=== PATIENT | male | born 1975 | race African-American/Black ===

== ENCOUNTER 2018-05-27 22:26 | Emergency (ER) | payer SELFPAY ==
[~2018-05-27] VITALS: Ht 185.4 cm; Wt 77.1 kg
[2018-05-27 22:26] VITALS: BP 145/96
--- NOTE | 2018-05-27 22:27 | NUR ---
ED Nurse Note: Patient BIBA with complaints of recent seizure, with no peritnent health history,
[2018-05-27] MEDS ORDERED: levETIRAcetam 1,000mg/NS100ml 100 ML IVPB ONE (22:45)
[2018-05-27 23:22] VITALS: BP 140/90
--- NOTE | 2018-05-27 23:27 | NUR ---
ED Nurse Note: Patient tolerated medication well. Patient is resting comfortably with brother at bedside.
--- NOTE | 2018-05-27 23:55 | NUR ---
ED Nurse Note: Patient tolerated sutures well. No bleeding complications occured.
--- NOTE | 2018-05-27 23:57 | Emergency Room Report ---
History of Present Illness General Chief Complaint: Seizure Source: Patient, Friend, EMS Present Illness HPI This is a 43-year-old male who has no past medical history. He presents with chief complaint of seizure. Onset today. He is currently visiting the [place] from [place]. He just came home from the airport after a 10 hour trip. 5 minutes into the house he had a tonic-clonic seizure activity witnessed by his friend. No head trauma. He was put down to the ground. There was bleeding from his mouth. Right now is back to baseline. No incontinence of urine. Patient had one previous seizure and seen in [place]. He said he had workup including MRI that was normal. He was not started on any medication. Denies any other complaint. Denies any drug use. Allergies: Coded Allergies: No Known Allergies (Unverified , 05/27/18) Patient History Past Medical History: see triage record, old chart reviewed Past Surgical History: none Pertinent Family History: none Social History: Denies: smoking Immunizations: other Reviewed Nursing Documentation: PMH: Agreed; PSxH: Agreed Nursing Documentation-PMH Past Medical History: No Stated History Review of Systems Eye: Denies: eye pain, blurred vision ENT: Denies: ear pain, nose congestion, throat swelling Respiratory: Denies: cough, shortness of breath Cardiovascular: Denies: chest pain, palpitations Gastrointestinal: Denies: abdominal pain, diarrhea, nausea, vomiting Musculoskeletal: Denies: back pain, joint pain Skin: Denies: rash Neurological: Denies: headache, numbness Endocrine: Denies: increased thirst, increased urine Hematologic/Lymphatic: Denies: easy bruising All Other Systems: negative except mentioned in HPI Physical Exam Vital Signs Date Time Temp Pulse Resp B/P (MAP) Pulse Ox O2 Delivery O2 Flow Rate FiO2 05/27/18 22:19 97.0 112 18 145/96 98 Room Air vitals unremarkable Sp02 EP Interpretation: reviewed, normal General Appearance: well appearing, no apparent distress, alert Head: normocephalic, atraumatic Eyes: bilateral eye PERRL, bilateral eye EOMI ENT: hearing grossly normal, normal pharynx, other - Tongue: There is a 4 cm laceration to the lateral aspect of this tongue. Neck: full range of motion, supple, no meningismus Respiratory: chest non-tender, lungs clear, normal breath sounds Cardiovascular #1: regular rate, rhythm, no murmur Gastrointestinal: normal bowel sounds, non tender, no mass, no organomegaly, no bruit, non-distended Musculoskeletal: back normal, gait/station normal, normal range of motion Psychiatric: mood/affect normal Skin: warm/dry Procedures Laceration/Wound Repair Laceration/Wound Repair : Consent: Verbal Wound Location: other - Mouth Wound's Depth, Shape: into muscle, linear Wound Length (cm): 4 Wound Explored: clean Anesthesia: 1% Lidocaine Volume Anesthetic (ccs): 2 Wound Repaired With: sutures Suture Size/Type: 4:0, other - chromic Number of Sutures: 4 Patient Tolerated: Well Complications: None Medical Decision Making Diagnostic Impression: Primary Impression: Seizure disorder Additional Impression: Laceration of tongue without complication Qualified Codes: S01.512A - Laceration without foreign body of oral cavity, initial encounter ER Course Patient presents with a seizure. This is his second episode, as I started on Keppra. Seizure activities probably secondary to the long trip and lack of sleep. He is otherwise stable. He is not driving here. We'll have him follow- up in [place] with his doctor. He may need EEG and further workup. Last Vital Signs Date Time Temp Pulse Resp B/P (MAP) Pulse Ox O2 Delivery O2 Flow Rate FiO2 05/27/18 23:22 97.0 80 16 140/90 100 Room Air Status: improved Disposition: HOME, SELF-CARE Condition: Stable Scripts Levetiracetam (KEPPRA) 500 Mg Tablet 500 MG ORAL EVERY 12 HOURS, #60 TAB 0 Refills Prov: Javier Cavanaugh MD 05/28/18 Patient Instructions: Seizure, Adult Additional Instructions: Follow-up with your Dr. within get back to [place]. You may need a referral to see a neurologist. Rinse your mouth with warm water and salt solution after eating and drinking. Return if symptom worsen. Javier Cavanaugh MD May 27, 2018 23:57
[2018-05-28] MEDS ORDERED: KEPPRA500 M4 ORAL
--- NOTE | 2018-05-28 00:07 | NUR ---
ED Nurse Note: Patient cleared for discharge, patient is A&Ox4, ambulatory with steady gait no s/s of acute distress. IV removed, Id band removed, patient verbalized understanding of discharge instructions. patient departed with all personal belongings accompanied by his brother.
[2018-05-28 00:25] VITALS: BP 140/90
--- NOTE | 2018-05-28 00:25 | NUR ---
ED Nurse Note: At time of discharge patient seemed very shaky abnd unable to walk with steady gait. ERMD informed and patient medicated upon departure. Patient wheelchaired to private vehicle.
[2018-05-28] MEDS ORDERED: LORazepam Inj 2mg/ml 1ml IM ONE (00:30)
== END 2018-05-28 00:25 | disposition home or self-care (01) ==
LOC: EDBD 22:26 → EMR 22:36
DX: G40.409 Other generalized epilepsy and epileptic syndromes, not intractable, without status epilepticus (principal); S01.512A Laceration without foreign body of oral cavity, initial encounter; X58.XXXA Exposure to other specified factors, initial encounter; Y92.89 Other specified places as the place of occurrence of the external cause
CPT/HCPCS: 41252; 93005; 96372; 96374; 96375; 99284; J1953; J2405